=== PATIENT | male | born 1950 | race Caucasian/White ===

== ENCOUNTER 2018-07-12 03:19 | Inpatient (IN) | payer OTHER, BC ==
[2018-07-12] VITALS (107 sets, daily range): BP systolic 81–146; BP diastolic 32–71
[~2018-07-12] VITALS: Ht 193 cm; Wt 135.6 kg
--- NOTE | ~2018-07-12 | HC ---
[facility] [place] [address] CONSULTATION Name: LIZZIE COVINGTON Eric Room #: [facility] IN M.R.#: [id number] Admission: 07/12/18 ������������������ Attend Phys: Eduard Swenson MD Discharge: ������������������ Date of : 50 Report #: [id number] THIS REPORT FOR: //name// CC: SEAN PRESTON DATE OF SERVICE: 07/12/2018 REASON FOR CONSULTATION: Acute kidney injury and critical hyperkalemia. HISTORY OF PRESENT ILLNESS: This is a 68-year-old male who looks like he is here at [place] for the first time ever. He came in via ambulance as he was exceedingly weak, hypotensive, dyspneic. He has an extensive cardiac related history. He has had chronic atrial fibrillation and has been cared for at [facility]. On 07/10/2018, he went into [facility] and had ablation done for his persistent atrial fibrillation. He was in for basically 24 hours and was discharged home yesterday, which was 07/11/2018. The ablation required cannulation of the femoral vein bilaterally. He had a mild hematoma on the left. Otherwise, he states he felt okay upon discharge. Upon arriving home, he says he was very weak. He was dizzy so much that he could not get off the chair or couch. He had a small amount of water intake. He did not eat food. He did not take medications. His breathing continued to worsen overnight and this was a dramatic change, so he called 911 and came to the Emergency Room. Upon arrival in the Emergency Room here, he had a blood pressure of 72/30. He was bradycardic with a heart rate in the 50s, but on EKG it looks actually significantly slower than that, more in the 30 range. He was tachypneic with a respiratory rate of 29. He did have low-grade fever to 99.0. He originally was given 500 mL of IV fluids and he was given some dopamine. When his labs came back, he was noted to have a potassium level of 7.7. Other labs will be noted below. He was given on insulin, dextrose, albuterol per aerosol, sodium bicarbonate, all additionally given IV. Shortly after that his blood pressure started to improve. His QRS complex narrowed from a previously very wide complex. It was at that point that we were called in to see the patient. In talking to the patient, he states that he passed a very small amount of urine before leaving [facility], but that it was very small volume and the urine was very dark. He reports he had mild difficulty passing that urine. He thinks he voided twice after being home. He says he had basically no intake of food or fluids as noted above. He says the urine was still dark, but he was able to pass it. He denies any history of prostate trouble or difficulty passing urine. He remembers being told at [facility] that his kidneys "were not normal." He never recalls seeing a clipping marker previously. He does not recall what his baseline creatinine level is. There were some labs from 07/10/2018 prior to his [facility] [address] [place] [address] CONSULTATION Name: LIZZIE COVINGTON Room #: 241-P [facility] IN M.R.#: [id number] Admission: 07/12/18 ������������������ Attend Phys: Eduard Swenson MD Discharge: ������������������ Date of : 50 Report #: [id number] procedure, which showed a normal potassium level, but no creatinine level was done or at least no creatinine level was reported on the form we received on records transfer. He does not recall what the number has been. He also had a recent cardiac catheterization. He thinks it was maybe a month ago or slightly longer. He recalls no complications with that. There is no report of whether any contrast was used with the study 2 days ago. In addition, he chronically takes meloxicam 15 mg daily, but he thinks he has not taken it over the past couple of days. He is normally on an intermittent dose of furosemide and some daily spironolactone. I find no listing and he recalls no taking of either an KRISTEN inhibitor or an angiotensin receptor epifanio. No other nonsteroidal use that I can tell. PAST MEDICAL HISTORY: Chronic atrial fibrillation as noted above, prior cardioversions. He has been chronically on Eliquis. He had the ablation 2 days ago. 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 Other surgeries include a right foot surgery and bilateral total knee replacements. He has some hyperlipidemia and is on atorvastatin. He has a history of chronic asthma. He has some obesity. MEDICATIONS: As reported include amiodarone 200 mg b.i.d., Eliquis 5 mg b.i.d., furosemide, which on the [facility] note listed as taking 60 mg 3 days weekly as well as potassium 10 mEq b.i.d., spironolactone 25 mg daily, metoprolol 25 mg daily, diltiazem 120 mg daily, fish oil 1000 mg daily, trazodone 50 mg at bedtime, aspirin 81 mg daily, meloxicam 15 mg daily, atorvastatin 10 mg daily. ALLERGIES: No known medical allergies. FAMILY HISTORY: Both parents had heart disease. No known renal disease in the family. SOCIAL HISTORY: The patient is , lives in [place]. He is retired from the [employer] Service. He has had chronic tobacco use of 1 pack daily. REVIEW OF SYSTEMS: Although he is significantly edematous now, he states that he is not normally edematous. He is a bit unaware of when that started. Normally, no difficulty voiding urine, although he has had mild hesitancy with low urine output and dark urine as noted above. No flank pain. He has progressive dyspnea and was just taken off BiPAP long enough for me to ask a few questions. He has chronic dyspnea and some cough with his asthma. Unaware of fevers, chills or sweats. He was very dizzy upon arriving home yesterday as noted above. Denies nausea or vomiting, diarrhea. No abdominal pain. He says he felt exceedingly wiped out yesterday after getting home. PHYSICAL EXAMINATION: [facility] [address] [place] [address] CONSULTATION Name: LIZZIE COVINGTON Room #: 241-P [facility] IN [facility].#: [id number] Admission: 07/12/18 ������������������ Attend Phys: Eduard Swenson MD Discharge: ������������������ Date of : 50 Report #: [id number] GENERAL: Pale, acutely ill-appearing male. VITAL SIGNS: Blood pressure 104/32, heart rate 55, respiratory rate 24, oxygen saturation up to 98%. He had been on the BiPAP as noted above. Monitor now shows what either looks like a left bundle branch block or a junctional rhythm. There are no P waves noted. EKG actually looks like it might still be in atrial fib with a very slow ventricular response. QRS is significantly more narrow than it was on arrival. HEENT: Shows pupils are equal and reactive. Sclerae nonicteric. Oral mucosa is moist. NECK: Supple. There is no JVD. I hear no bruits. CHEST: Shows bilateral rales with faint wheezes bilaterally, poor excursion noted. HEART: Has an irregular bradycardia with grade 2 systolic murmur. ABDOMEN: Distended. Few bowel sounds are present. Abdomen is soft, nontender. I am unable to palpate any organomegaly or masses. I cannot palpate or percuss an enlarged urinary bladder. Right femoral cannulation site looks good. Left femoral site has ecchymosis. EXTREMITIES: Extremities are generally cool. He has no upper extremity edema. He has bilateral 3+ lower extremity edema, has 2+ pedal pulses. I see no evidence of blue toes. He does have a chronic deformity of his right ankle and foot. LABORATORY DATA: I reviewed his chest x-ray, which shows pulmonary edema, under aerated generally. EKG as noted above. LABORATORY DATA: Sodium 137, potassium 7.7, chloride 100, bicarbonate 16, BUN 48, creatinine 4.2, glucose 81. Troponin 7.53 on first check. White count 25.8, hemoglobin 10.9, hematocrit 35.8, platelets 186,000. Differential on the white count, 78 neutrophils, 7 bands, 5 lymphs, 10 monos. No urinalysis available. ASSESSMENT: 1. Critical hyperkalemia with EKG changes, very wide complex bradycardia. He was treated him about the time I got the call to the Emergency Room. We have not had a repeat potassium level, but I have ordered one now. His QRS is narrowed and his blood pressure came up, so I expect his potassium to be somewhat better. It was demonstrated to be normal on the labs 2 days ago at [facility]. Obviously, he has been on a combination of medications including spironolactone, potassium, and meloxicam. In addition, he was in [facility] and had the ablation done for his atrial fibrillation. It sounds like yesterday he was very hypotensive, all of which would be contributing. At this point, we will recheck his potassium. If it is coming down, we will continue to treat medically. If it is more of a problem, we will do emergent hemodialysis. 2. Acute kidney injury with creatinine level up to 4.2. Unfortunately, we do [facility] [address] [place] [address] CONSULTATION Name: LIZZIE COVINGTON Eric Room #: 241-P [facility] IN Jaz.#: [id number] Admission: 07/12/18 ������������������ Attend Phys: Eduard Swenson MD Discharge: ������������������ Date of : 50 Report #: [id number] not have a baseline and the patient is unaware of what his baseline is. He has been very oliguric at home by self description. We did scan his bladder and he had about 200 mL in his bladder now; that is after receiving 80 of Lasix IV. With his pulmonary edema, we will retreat with additional IV Lasix and with his blood pressure now better, hopefully we will get some effective diuresis. We will get a renal ultrasound for completeness. We will check fractional excretion of sodium. Some of this could certainly be prerenal azotemia with his hypotension. He certainly could have developed some acute tubular necrosis. He had a recent heart catheterization, but I do not see evidence of blue toes. He has no eosinophilia to suggest cholesterol embolization to his kidneys. There is no mention in the [facility]'s records of whether he received any contrast with his ablation. 3. Hypotension and cardiogenic shock, improved once his potassium was treated and his QRS narrowed. 4. Pulmonary edema. We will give him some IV Lasix and try to diurese. If that does not work, we will need to do dialysis to also get some volume off. 5. Acute elevation of troponin 2 days post-ablation for atrial fib. He had a recent cardiac catheterization with noncritical coronary artery disease. No intervention was done at that time. He has not had prior documented coronary artery disease. 6. History of ascending aortic dissection with aortic root replacement and aortic valve replacement. 7. Chronic anticoagulation. 8. Leukocytosis. He had very low-grade fever, but he has not had additional chills. No other symptoms to suggest that he is septic. We will draw baseline cultures. 9. Chronic atrial fibrillation as noted above. 10. Lower extremity edema, which is a new development for him. 11. Asthma by history. 12. Obesity. PLAN: 1. Stat repeat of his BMP. 2. Treat potassium according to new results. 3. Consideration of dialysis if either his potassium does not come down or he has continuing problems with pulmonary edema and we cannot get him diuresed. 4. High dose IV Lasix. 5. Continue to monitor bladder to make sure that he is emptying adequately. 6. Check urinalysis as well as fractional excretion of sodium. 7. Renal ultrasound. 8. Surveillance blood cultures with his leukocytosis. 9. Cardiology will certainly need to be involved in his care with his elevated [address] [address] CONSULTATION Name: LIZZIE COVINGTON Room #: 241-P ADM IN M.R.#: [id number] Admission: 07/12/18 ������������������ Attend Phys: Eduard Swenson MD Discharge: ������������������ Date of : 50 Report #: [id number] troponin. 10. Very close ICU monitoring. ��������������������������������������������� ���������������������������������������� By: ��������������������������������������������� [id number] Jarvis Huang MD /nt
[~2018-07-12 03:19] MED LIST: ALDACTONE25 MG PO; ALDACTONE50 MG PO; AMLODIPINE BESY10 MG PO; ASPIR 8181 MG PO; CARDIZEM CD120 MG PO; ELIQUIS5 MG PO; FISH OIL 1,001000 M2 PO; FOLIC ACID 1 MG1 MG PO; KLOR-CON 1010 MEQ PO; LASIX 40 MG TAB40 M2 PO; LIPITOR20 MG PO; METHOTREXATE 22.5 MG PO; MOBIC15 MG PO; PACERONE 200 M200 M1 PO; PACERONE200 MG PO; TOPROL XL25 MG PO; TRAZODONE HCL50 MG PO
[2018-07-12 03:45] LABS: HEMATOCRIT 35.8 % (42.0-52.0); HEMOGLOBIN 10.9 gm/dL (14.0-18.0); MCH 29.4 pg (26.0-34.0); MCHC 30.4 g/dL (28.0-37.0); MCV 96.5 fL (80.0-100.0); PLATELET COUNT 186 thou/uL (150-400); RBC 3.71 mil/uL (4.50-6.00); RDW 17.8 % (10.5-14.5); WBC 25.8 thou/uL (4.0-11.0)
[2018-07-12 03:52] LABS: CALCIUM 8.8 mg/dL (8.5-10.1); CREATININE 4.2 mg/dL (0.7-1.3)
[2018-07-12] MEDS ORDERED: CENTRUM SILVER1 EAC2 PO (03:54)
[2018-07-12 03:55] LABS: POTASSIUM 7.7 mmol/L (3.5-5.1); TROPONIN-I 7.53 ng/mL (<0.06)
[2018-07-12 04:28] LABS: ABSOLUTE NEUTROPHILS 21.9 thou/uL (1.4-8.2)
[2018-07-12 04:29] LABS: ANISOCYTOSIS 1+; LARGE PLATELETS FEW; PLATELET ESTIMATE NORMAL; POLYCHROMASIA 2+
[2018-07-12 05:56] LABS: CALCIUM 9.5 mg/dL (8.5-10.1); CREATININE 4.1 mg/dL (0.7-1.3)
--- NOTE | 2018-07-12 06:00 | NUR ---
Pt arrived ICU via cart,accompanied with ER staff to room 241. AAOx4, denies of any CP or chest discomfort. Mildly SOA, O2 sat 92% on 6 liters of oxygen. He is currently on dopamine gtt due to hypotension and bradycardic . 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 Hx obtained, Assessment completes. Care plans are initiated, continue working toward goals.
[2018-07-12 06:02] LABS: POTASSIUM 6.6 mmol/L (3.5-5.1)
[2018-07-12 08:30] LABS: BE(vivo) -10.1 mmol/L (-2 to +3); HCO3 15.6 mmol/L (22.0-26.0); PCO2 33.9 mmHg (35.0-45.0); PO2 74.7 mmHg (80.0-100.0); sO2 93.5 % (92.0-98.0)
[2018-07-12 08:31] LABS: pH 7.282 (7.360-7.450)
[2018-07-12 09:00] LABS: URINE BILIRUBIN NEGATIVE (Negative); URINE BLOOD 3+ (Negative); URINE CLARITY CLOUDY; URINE COLOR YELLOW; URINE GLUCOSE-RANDOM* NEGATIVE (Negative); URINE KETONES NEGATIVE (Negative); URINE LEUKOCYTES TRACE (Negative); URINE NITRITE NEGATIVE (Negative); URINE PROTEIN (DIPSTICK) 2+ (Negative); URINE SPECIFIC GRAVITY 1.025 (1.005-1.035)
[2018-07-12 09:10] LABS: AMORPHOUS URATES Many /LPF (None Seen); SQUAMOUS 0-3 Few /LPF (0-3); URINE RBC >20 Many /HPF (0-2)
[2018-07-12 09:11] LABS: HYALINE CASTS 0-3 Few /LPF (None Seen); URINE WBC 6-15 Few /HPF (0-5); YEAST Present (None Seen)
[2018-07-12 09:14] LABS: URINE CREATININE-RANDOM* 56.3 mg/dL
[2018-07-12 09:41] LABS: ALBUMIN 3.4 g/dL (3.4-5.0); CALCIUM 9.3 mg/dL (8.5-10.1); CREATININE 4.1 mg/dL (0.7-1.3); DIRECT BILIRUBIN 1.8 mg/dL (<0.1-0.3); MAGNESIUM 1.9 mg/dL (1.8-2.4); TOTAL PROTEIN 6.5 g/dL (6.4-8.2)
[2018-07-12 09:43] LABS: POTASSIUM 6.4 mmol/L (3.5-5.1)
[2018-07-12 09:44] LABS: TROPONIN-I 6.56 ng/mL (<0.06)
--- NOTE | 2018-07-12 09:51 | EKG ---
[address] [place] [address] ELECTROCARDIOGRAM REPORT Name: LIZZIE COVINGTON Room #: 241-P ADM IN M.R.#: [id number] ������������������ Admission: 07/12/18 ������������������ Attend Phys: Eduard Swensno MD Discharge: ������������������ Date of : 50 Report #: [id number] ����������������������������������������������������������������� [id number] THIS REPORT FOR: //name// [facility] ED Test Date: 2018-07-12 Test Time: 03:25:12 Pat Name: LIZZIE COVINGTON Department: Room: 241 Gender: M Director Broadcast: JANELLE : 1950 Requested By: Marlo Woody Order Number: [id number] MD: Sebastián More Measurements Intervals [place] Rate: 56 P: VT: QRS: -52 QRSD: 236 T: 85 QT: 617 QTc: 596 Interpretive Statements Atrial fibrillation Left bundle branch block No previous ECG available for comparison Electronically Signed On 07-12-2018 9:50:50 CDT by Sebastián More [email or web address] ��������������������������������������������� <ELECTRONICALLY SIGNED> ���������������������������������������� By: Sebastián More MD, [facility] ��������������������������������������������� 07/12/18 0950 0325 0325 Sebastián More MD, FACC /EPI
--- NOTE | 2018-07-12 10:10 | NUR ---
vascular access team consulted for central line. DR ULRICH CANCELLED ORDER AND SPOKE WITH IR TO PLACE DIALYSIS CATH WITH PIGTAIL FOR IV ACCESS.
--- NOTE | 2018-07-12 10:34 | 2DMMODE ---
[facility] [employer] [place] [address] 2 D/M-MODE ECHOCARDIOGRAM Name: COVINGTONLIZZIE Eric Room #: 241-P [facility] IN ..#: [id number] ������������� Admission: 07/12/18 ������������� Attend Phys: Eduard Swenson MD Discharge: ��� ������������� ��� Date of : 50 Date of Service: 07/12/18 1034 �� Report #: [id number] �������� ��������������������������������������������[id number] THIS REPORT FOR: //name// APPROVED REPORT Study performed: 07/12/2018 09:03:48 EXAM: Comprehensive 2D, Doppler, and color-flow Echocardiogram Patient Location: ICU Room #: 241 Status: routine BSA: 2.61 HR: 80 bpm BP: 104/32 mmHg Rhythm: NSR Other Information Study Quality: Adequate Indications Hypotension CAD Hypertension/HDD s/p ablation 07/10-, Hx Ao dissection with stent, SOA Echo Enhancing Agent Indication: Endocardial border delineation Agent(s) / Amount(s) Used: Optison 3 cc 2D Dimensions RVDd: 47.05 mm IVSd: 16.47 (7-11mm) LVOT Diam: 23.76 (18-24mm) LVDd: 67.90 mm PWd: 15.02 (7-11mm) LVDs: 55.02 (25-40mm) Aortic Root: 26.38 mm Volumes Left Atrial Volume (Systole) Single Plane 4CH: 224.54 mL Single Plane 2CH: 121.85 mL LA ESV Index: 65.00 mL/m2 Aortic Valve AoV Peak Eric.: 1.71 m/s [facility] [address] [place] [address] 2 D/M-MODE ECHOCARDIOGRAM Name: LIZZIE COVINGTON Room #: 241-P [facility] IN ..#: [id number] ������������� Admission: 07/12/18 ������������� Attend Phys: Eduard Swenson MD Discharge: ��� ������������� ��� Date of : 50 Date of Service: 07/12/18 1034 �� Report #: [id number] �������� ��������������������������������������������[id number] AO Peak Gr.: 11.70 mmHg LVOT Max P.46 mmHg LVOT Max V: 1.06 m/s ANGEL Vmax: 2.74 cm2 AI Vmax: 4.83 m/s AI [place]: 3.89 m/s2 AI PHT: 360.32 ms Mitral Valve E/A Ratio: 2.7 MV Decel. Time: 133.88 ms MV E Max Eric.: 1.60 m/s MV A Erci.: 0.59 m/s MV PHT: 38.83 ms IVRT: 31.14 ms Pulmonary Valve PV Peak Eric.: 1.14 m/s PV Peak Gr.: 5.23 mmHg Tricuspid Valve TR Peak Eric.: 3.53 m/s TR Peak Gr.: 49.96 mmHg Left Ventricle Left ventricle is moderately dilated. Moderate concentric left ventricular hypertrophy. Left ventricular systolic function is moderately decreased. LVEF is 35%. Right Ventricle Right ventricle is moderately dilated. Right ventricle is mildly hypokinetic. Atria Left atrium is severely dilated. Right atrium is severely dilated. Aortic Valve Aortic valve is mildly calcified. Moderate to severe aortic regurgitation There is no aortic valvular stenosis. Mitral Valve Mild mitral annular calcification. Severe mitral regurgitation. No evidence of mitral valve stenosis. Tricuspid Valve The tricuspid valve is normal in structure. Moderate tricuspid regurgitation. PAP is estimated at 50 mmHg + estimated RA [facility] [address] [place] [address] 2 D/M-MODE ECHOCARDIOGRAM Name: LIZZIE COVINGTON Eric Room #: 241-P ADM IN M.R.#: [id number] ������������� Admission: 07/12/18 ������������� Attend Phys: Eduard Swenson MD Discharge: ��� ������������� ��� Date of : 50 Date of Service: 07/12/18 1034 �� Report #: [id number] �������� ��������������������������������������������[id number] pressure. Pulmonic Valve The pulmonary valve is normal in structure. Trace pulmonic regurgitation. Great Vessels The aortic root is normal in size. Ascending aorta is not well visualized. IVC is not visualized. Pericardium There is no pericardial effusion. <Conclusion> Left ventricle is moderately dilated. LVEF is 35%. Right ventricle is moderately dilated. Right ventricle is mildly hypokinetic. Left atrium is severely dilated. Right atrium is severely dilated. Aortic valve is mildly calcified. Moderate to severe aortic regurgitation Mild mitral annular calcification. Severe mitral regurgitation. The tricuspid valve is normal in structure. Moderate tricuspid regurgitation. PAP is estimated at 50 mmHg + estimated RA pressure. The pulmonary valve is normal in structure. Trace pulmonic regurgitation. There is no pericardial effusion. ��������������������������������������������� <ELECTRONICALLY SIGNED> ���������������������������������������� By: Theron Whiteside MD ��������������������������������������������� 07/12/18 1034 1034 1034 Theron Whiteside MD /INF
--- NOTE | 2018-07-12 10:55 | NUR ---
PATIENT SIGNED CONSENTS AFTER PHYSICIAN DISCUSSED PLACEMENT OF TEMPORARY DIALYSIS ACCESS AND NURSE EXPLAINED CENTRAL LINE PLACEMENT. IR CAME TO TRANSPORT PATIENT FOR PROCEEDURES. CRITICAL LABS CALLED TO APPROPRIATE PHYSICIANS. CONSULTS CALLED.
[2018-07-12 18:48] LABS: ALBUMIN 3.1 g/dL (3.4-5.0); CALCIUM 8.1 mg/dL (8.5-10.1); PHOSPHORUS 5.5 mg/dL (2.5-4.9)
--- NOTE | 2018-07-12 18:48 | NUR ---
PATIENT ASSESSMENTS AND VITAL SIGNS DOCUMENTED. PATIENT HAD TEMPORARY DIALYSIS ACCESS PLACED IN RIGHT JUGULAR. HE HAD DIALYSIS TODAY, SEE FLOW CHART. HE TOLERATED WELL, FAMILY WAS IN THE ROOM. HE ALSO HAD A CENTRAL LINE PLACED IN HIS RIGHT JUGULAR. IT IS OK TO USE AND IT IS BEING UTILIZED FOR THE DOPAMINE GTT AND ZOSYN. HE IS VERY PLEASANT AND COOPERATIVE. HE EXPRESSED SOME EPIGASTRIC DISCOMFORT AT A 1/10, EXPRESSED IT MIGHT BE INDIGESTION. NURSE NOTIFIED CARDIOLOGY AND PRIMARY TO ASSESS FOR POSSIBLE INTERVENTIONS. ORAL INDIGESTION MEDICATIONS PROVIDED TONIGHT, WILL WAIT TO SEE IF IT HELPED. DOPAMINE IS BEING TITRATED TO KEEP HEART RATE >60BPM. SEE TITRATION DOCUMENTATION. REPORT WILL BE GIVEN TO SILVERWARE ETCHER RN FOR CONTINUATION OF CARE.
[2018-07-12 18:49] LABS: CREATININE 3.1 mg/dL (0.7-1.3); POTASSIUM 4.9 mmol/L (3.5-5.1)
--- NOTE | 2018-07-12 19:30 | NUR ---
I have reviewed the documentation by Jarvis Lanier from 07/12/18 07 to 07/12/18 193 and I concur with it.
[2018-07-13] VITALS (88 sets, daily range): BP systolic 87–157; BP diastolic 36–135
--- NOTE | 2018-07-13 05:08 | NUR ---
ASSUMED CARE OF PT. AT 1900. PT. IS PLEASANT AND COOPERATIVE. A&O X4. ASSESSMENTS AND VITAL SIGNS CHARTED. MEDICATION TOTRATION CHARTED. PT. DID NOT USE BIPAP OVERNIGHT, STAYED ON NC AT 4L, WELL TOLERATED. PT. REMAINEED HEMODYNAMICALLY STABLE WITH DOPAMINE GTT. NO COMPLAINTS OF CHEST PAIN THROUGHOUT SHIFT. PLAN OF CARE IS TO CONTINUE TO MONITOR LABS AND GIVE DIALYSIS FURING AM SHIFT. WILL CONTINUE TO MONITOR.
[2018-07-13 05:09] LABS: HEMATOCRIT 28.7 % (42.0-52.0); HEMOGLOBIN 9.6 gm/dL (14.0-18.0); MCH 30.3 pg (26.0-34.0); MCHC 33.2 g/dL (28.0-37.0); PLATELET COUNT 142 thou/uL (150-400); RBC 3.16 mil/uL (4.50-6.00); RDW 16.7 % (10.5-14.5); WBC 15.5 thou/uL (4.0-11.0)
[2018-07-13 05:34] LABS: ALBUMIN 3.1 g/dL (3.4-5.0); CREATININE 3.6 mg/dL (0.7-1.3); MAGNESIUM 1.9 mg/dL (1.8-2.4); PHOSPHORUS 5.5 mg/dL (2.5-4.9); POTASSIUM 4.8 mmol/L (3.5-5.1); TOTAL BILIRUBIN 2.7 mg/dL (<0.1-1.0); TOTAL PROTEIN 5.7 g/dL (6.4-8.2)
[2018-07-13 05:51] LABS: TROPONIN-I 2.34 ng/mL (<0.06)
[2018-07-13 07:01] LABS: ABSOLUTE NEUTROPHILS 14.3 thou/uL (1.4-8.2); ANISOCYTOSIS 1+; LARGE PLATELETS OCCASIONAL; METAMYELOCYTES 1 %
--- NOTE | 2018-07-13 08:22 | EKG ---
[address] [address] ELECTROCARDIOGRAM REPORT Name: LIZZIE COVINGTON Room #: 241-P ADM IN M.R.#: [id number] ������������������ Admission: 07/12/18 ������������������ Attend Phys: Eduard Swenson MD Discharge: ������������������ Date of : 50 Report #: [id number] ����������������������������������������������������������������� [id number] THIS REPORT FOR: //name// [facility] Test Date: 2018-07-13 Test Time: 07:46:36 Pat Name: LIZZIE COVINGTON Department: Room: 241 P Gender: M Magnetic Observer: GR : 1950 Requested By: Eduard Swenson Order Number: [id number] MD: Pedro Luis Metcalf Measurements Intervals [place] Rate: 60 P: -33 WV: 269 QRS: -43 QRSD: 145 T: 115 QT: 449 QTc: 449 Interpretive Statements Sinus rhythm Ventricular premature complex Prolonged [place] interval Compared to ECG 07/12/2018 03:25:12 Electronically Signed On 07-13-2018 8:22:27 CDT by Pedro Luis Metcalf [email or web address] ��������������������������������������������� <ELECTRONICALLY SIGNED> ���������������������������������������� By: Pedro Luis Metcalf MD ��������������������������������������������� 07/13/18 0822 D: 04/745 5 Pedro Luis Metcalf MD /ZHENG
--- NOTE | 2018-07-13 12:17 | 2DMMODE ---
[facility] [place] [address] 2 D/M-MODE ECHOCARDIOGRAM Name: ADRIALIZZIE Eric Room #: 238-P ADM IN ..#: [id number] ������������� Admission: 07/12/18 ������������� Attend Phys: Eduard Swenson MD Discharge: ��� ������������� ��� Date of : 50 Date of Service: 07/13/18 1217 �� Report #: [id number] �������� ��������������������������������������������[id number] THIS REPORT FOR: //name// APPROVED REPORT Study performed: 07/13/2018 11:26:42 EXAM: Limited 2D, Doppler, and color-flow Echocardiogram Patient Location: ICU Room #: [facility] Status: ESTRELLITA BSA: 2.63 HR: 57 bpm BP: 112/46 mmHg Rhythm: REGULAR Other Information Study Quality: GoodAdequate Indications Follow up echo for LV function. (Complete echo done yesterday, EF-35%) 2D Dimensions IVSd: 15.88 (7-11mm) LVDd: 72.09 mm PWd: 15.33 (7-11mm) Ascending Ao: 42.38 (22-36mm) LVDs: 51.30 (25-40mm) Aortic Root: 45.22 mm Aortic Valve AI Vmax: 4.97 m/s AI Corson: 3.26 m/s2 AI PHT: 441.46 ms Tricuspid Valve TR Peak Eric.: 3.23 m/s TR Peak Gr.: 41.85 mmHg Left Ventricle Left ventricle is dilated. Moderate concentric left ventricular hypertrophy. Left ventricular systolic function is mild to moderately decreased. LVEF is 40-45%. Right Ventricle Right ventricle is dilated. [facility] [address] [place] [address] 2 D/M-MODE ECHOCARDIOGRAM Name: LIZZIE COVINGTON Room #: 238-P [facility] IN .[place].#: [id number] ������������� Admission: 07/12/18 ������������� Attend Phys: Eduard Swenson MD Discharge: ��� ������������� ��� Date of : 50 Date of Service: 07/13/18 1217 �� Report #: [id number] �������� ��������������������������������������������[id number] Atria Left atrium is dilated. Right atrium is dilated. Aortic Valve Aortic valve is calcified. Severe aortic regurgitation. Mitral Valve The mitral valve is normal in structure. Mild mitral annular calcification. Severe mitral regurgitation. Tricuspid Valve The tricuspid valve is normal in structure. Moderate tricuspid regurgitation. Estimated PAP is 42mmHg plus the right atrial pressure. Pulmonic Valve The pulmonary valve is normal in structure. Moderate pulmonic regurgitation. Great Vessels Aortic root is dilated at 4.5cm. Ascending aorta is dilated at 4.2cm. IVC is not well visualized. Pericardium There is no pericardial effusion. <Conclusion> Left ventricle is dilated. LVEF is 40-45%. Right ventricle is dilated. Left atrium is dilated. Right atrium is dilated. Aortic valve is calcified. Severe aortic regurgitation. The mitral valve is normal in structure. Mild mitral annular calcification. Severe mitral regurgitation. The tricuspid valve is normal in structure. Moderate tricuspid regurgitation. Estimated PAP is 42mmHg plus the right atrial pressure. The pulmonary valve is normal in structure. Moderate pulmonic regurgitation. Aortic root is dilated at 4.5cm. [facility] [address] [place] [address] 2 D/M-MODE ECHOCARDIOGRAM Name: ADRIALIZZIE Eric Room #: 238-P [facility] IN [facility].#: [id number] ������������� Admission: 07/12/18 ������������� Attend Phys: Eduard Swenson MD Discharge: ��� ������������� ��� Date of : 50 Date of Service: 07/13/181216 �� Report #: [id number] �������� ��������������������������������������������[id number] Ascending aorta is dilated at 4.2cm. There is no pericardial effusion. ��������������������������������������������� <ELECTRONICALLY SIGNED> ���������������������������������������� By: Theron Whiteside MD ��������������������������������������������� 07/13/187 16 16 Theron Whiteside MD /INF
[2018-07-13 14:09] LABS: HEPATITIS B SURFACE AG Negative (Negative)
--- NOTE | 2018-07-13 15:43 | NUR ---
PT ADMITTED RELATED TO ARF DUE TO PULMONARY EDEMA. CM REVIEWED CHART AND SPOKE WITH CARE TEAM. CM MET WITH PT AT BEDSIDE THIS DAY. PT IS A&O X4. CM ROLE INTRODUCED. PT INDICATED HE LIVES ALONE IN A HOUSE WITH 2 STEPS TO ENTER AND NO STEPS INSIDE. 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 PT INDICATED NO DME FOR USE AT HOME. PT INDICATED HE HAD HOME HEALTH WHEN HE HAD HIS KNEES REPLACED BUT COULDN'T RECALL PROVIDER. CM PROVIDED LIST OF HH'S FOR HIM TO REVIEW SHOULD IT BE RECOMMENDED UPON DC. PT INDICATED HE PLANS TO RETURN HOME ONCE MEDICALLY STABLE. CM TO FOLLOW INDICATED WITH DC PLANNING.
--- NOTE | 2018-07-13 18:37 | NUR ---
PATIENT ASSESSMENTS AND VITAL SIGNS DOCUMENTED. HE WORKED WITH PHYSICAL THERAPY TODAY. HE GOT UP INTO THE CHAIR, THEN BACK TO BED FOR HIS ECHOCARDIOGRAM. THEN PHYSICAL THERAPY CAME BACK AND GOT HIM UP TO CHAIR AGAIN. HE HAS A MARINAL, MINIMAL APPETITE. VIGIL CATHETER INTACT WITH OUTPUT DOCUMENTED. PLAN OF CARE IS TO CONTINUE TO MONITOR PATIENT ASSESSMENTS, VITAL SIGNS, INCREASE ACTIVITY, AND TITRATE DOPAMINE. PATIENT PROGRESSING TOWARDS PLAN OF CARE GOALS.
--- NOTE | 2018-07-13 23:58 | NUR ---
REPORT GIVEN TO IRA RN AT 7260
[2018-07-14] VITALS (53 sets, daily range): BP systolic 93–116; BP diastolic 38–72
--- NOTE | 2018-07-14 05:00 | NUR ---
Pt with second episode of non sustain Junctional tachycardia this am. Denies of any symptoms. Stop dopamine gtt for now. Will watch for his HR /cardiac rhythms and BP closely.
[2018-07-14 05:02] LABS: HEMATOCRIT 26.9 % (42.0-52.0); HEMOGLOBIN 9.1 gm/dL (14.0-18.0); MCH 30.8 pg (26.0-34.0); MCHC 33.9 g/dL (28.0-37.0); RBC 2.95 mil/uL (4.50-6.00); RDW 17.2 % (10.5-14.5); WBC 10.4 thou/uL (4.0-11.0)
[2018-07-14 05:15] LABS: ALBUMIN 2.7 g/dL (3.4-5.0); CALCIUM 7.9 mg/dL (8.5-10.1); CREATININE 3.6 mg/dL (0.7-1.3); PHOSPHORUS 4.1 mg/dL (2.5-4.9); POTASSIUM 4.1 mmol/L (3.5-5.1)
--- NOTE | 2018-07-14 07:00 | NUR ---
Pt remains stable in this am. Dopamine gtt remains off. HR in 50's and SBP > 90 mmHg. Report is hand off to am shift RN.
--- NOTE | 2018-07-14 12:27 | NUR ---
ASSUMED CARE OF PT AT 0700 THIS SHIFT. PT HAS BEEN COOPERATIVE, HAS DENIED ANY PAIN THIS SHIFT. PT HAS BEEN OFF DOPAMINE ALL SHIFT, HR REMAINED 50s-60s, NEW EKG THIS MORNING SHOWED PT HAS LEFT BBB. PT WAS SEEN BY ALL PHYSICIANS, CARDIOLOGY IS OK WITH PT TRANSFERRING TO CCU LATER IN THE DAY. ASSESSMENTS ARE DOCUMENTED, PT IS CURRENTLY RESTING COMFORTABLY IN THE ROOM. PT HAS HAD VISITORS THIS SHIFT, EDUCATION WAS PROVIDED. PLAN OF CARE IS TO CONTINUE TO MONITOR PT CLOSELY AT THIS TIME AND TRANSFER PT OUT OF ICU AT END OF SHIFT.
--- NOTE | 2018-07-14 14:14 | HC ---
[facility] [place] [address] CONSULTATION Name: LIZZIE COVINGTON Eric Room #: 238-P [facility] IN M.R.#: [id number] Admission: 07/12/18 ������������������ Attend Phys: Eduard Swenson MD Discharge: ������������������ Date of : 50 Report #: [id number] THIS REPORT FOR: //name// CC: SEAN PRESTON DATE OF SERVICE: 07/12/2018 PULMONARY CONSULTATION REFERRING PHYSICIAN: Dr. Lee. REASON FOR REFERRAL: Hypoxia. HISTORY OF PRESENT ILLNESS: The patient is a 68-year-old white male who was brought to the Emergency Room with progressive dyspnea and chest tightness. A pulmonary consultation was requested. The patient underwent an ablation procedure at [facility] couple days ago. He was in the hospital overnight. When he returned, he did not feel well. He felt lightheaded, dizzy. He also noted increasing dyspnea. With worsening dyspnea, he presented to the Emergency Room. In the ER, the patient was found to be hypoxic. He was hypoxic, hyperkalemic, Electrolytes showed an elevated creatinine. In the ER, the patient was also found to be hypotensive with a systolic blood pressure around 70 mmHg. He was also bradycardic. He was given atropine with good response. Since admission, the patient is now scheduled to undergo hemodialysis. The patient is now getting ready to go to hemodialysis. Otherwise, the patient denies any chronic lung disease. Denies any tobacco use. No recent hemoptysis. PAST MEDICAL HISTORY: Notable for chronic atrial fibrillation as mentioned above, undergoing ablation surgery, on chronic anticoagulation, abdominal aortic aneurysm, undergoing surgical repair along with hyperlipidemia. PAST SURGICAL HISTORY: As mentioned above. ALLERGIES: None to medications. [facility] [address] [place] [address] CONSULTATION Name: LIZZIE COVINGTON Room #: 238-P [facility] IN M.R.#: [id number] Admission: 07/12/18 ������������������ Attend Phys: Eduard Swenson MD Discharge: ������������������ Date of : 50 Report #: [id number] HOME MEDICATIONS: Reviewed. This includes amiodarone, Eliquis, Lasix, potassium supplements, spironolactone, metoprolol, diltiazem, trazodone, aspirin, meloxicam, atorvastatin. FAMILY HISTORY: Notable for coronary artery disease in the parents. SOCIAL HISTORY: The patient is . He has children who live in town. He has worked for the [employer]. He is currently retired. The patient denies any history of tobacco use to this physician, though medical record suggests that he has smoked cigarettes in the past. REVIEW OF SYSTEMS: As mentioned above, otherwise 10-point system reviewed and negative. PHYSICAL EXAMINATION: GENERAL: He is awake, alert, appears moderately dyspneic. VITAL SIGNS: Temperature is 97 degrees Fahrenheit, pulse is 60, respiratory rate is 20, blood pressure 110/50 mmHg, saturation 99%. HEENT: Normocephalic, atraumatic. NECK: Supple, without lymphadenopathy or thyromegaly. CHEST: Breath sounds are fair. Few scattered crackles in the bases. No wheezes. CARDIOVASCULAR: Irregular, no obvious murmurs or gallop. Pulses are 2+/4+ bilaterally. ABDOMEN: Soft, nontender. No organomegaly or masses felt. GENITOURINARY: Deferred. RECTAL: Deferred. EXTREMITIES: 2+ edema bilaterally. NEUROLOGIC: Grossly intact. LABORATORY DATA: Portable chest x-ray shows small lung volumes, increased pulmonary vascular markings. Leg Doppler ultrasound showed no evidence of DVT. Procalcitonin level is 0.5. Lactic acid 7.1. Sodium 137, potassium 7.7, chloride 100, CO2 of 16, BUN is 48, creatinine is 4.2. WBC 25,800, hemoglobin 10.9, platelets are normal. Arterial blood gas revealed pH 7.28, pCO2 of 33, pO2 of 74 on 5 liters of O2. IMPRESSION: 1. Acute hypoxic respiratory failure due to pulmonary edema. 2. Pulmonary edema due to acute renal failure. 3. Profound hyperkalemia, acute kidney injury on chronic kidney disease. 4. Hypotension, leukocytosis, possible sepsis, possible cardiogenic. 5. Chronic atrial fibrillation, status post ablation, on chronic anticoagulation. 6. Elevated troponin, history of coronary artery disease. [address] [address] CONSULTATION Name: LIZZIE COVINGTON Room #: 238-P ADM IN M.R.#: [id number] Admission: 07/12/18 ������������������ Attend Phys: Eduard Swenson MD Discharge: ������������������ Date of : 50 Report #: [id number] 7. History of ascending aortic aneurysm repair with aortic valve replacement. RECOMMENDATION: Agree with current management, diuresis, plan for hemodialysis, wean O2 for saturation 90%. DVT and GI prophylaxis recommended. Thank you for this consultation. ��������������������������������������������� <ELECTRONICALLY SIGNED> ���������������������������������������� By: Jah Ruelas MD ��������������������������������������������� 07/14/18 1414 1432 0740 Jah Ruelas MD /nt
[2018-07-15] VITALS (11 sets, daily range): BP systolic 105–128; BP diastolic 43–62
[2018-07-15 05:04] LABS: HEMATOCRIT 27.9 % (42.0-52.0); HEMOGLOBIN 9.2 gm/dL (14.0-18.0); MCH 30.2 pg (26.0-34.0); MCV 91.5 fL (80.0-100.0); RBC 3.05 mil/uL (4.50-6.00); RDW 16.8 % (10.5-14.5); WBC 9.1 thou/uL (4.0-11.0)
--- NOTE | 2018-07-15 05:13 | NUR ---
No event tonight. Pt remains stable. Resting well post received bath and Trazadone. He is continue to be off dopamine gtt. HR as low as 55 bpm tonight when he is sleeping, otherwise his HR were in 60's when he awakes. No junctional tach indicates in this shift. Swelling in LE seems to be slightly improved. He lost 1.3 lbs within 24 hrs. Made over 1500 cc of urine within 12 hrs. Slowly progressing toward goals.
[2018-07-15 05:20] LABS: ALBUMIN 2.8 g/dL (3.4-5.0); CALCIUM 8.7 mg/dL (8.5-10.1); CREATININE 3.1 mg/dL (0.7-1.3); PHOSPHORUS 3.5 mg/dL (2.5-4.9); POTASSIUM 4.1 mmol/L (3.5-5.1)
[2018-07-15 07:05] LABS: ALBUMIN 2.8 g/dL (3.4-5.0); DIRECT BILIRUBIN 1.3 mg/dL (<0.1-0.3); TOTAL BILIRUBIN 2.7 mg/dL (<0.1-1.0); TOTAL PROTEIN 5.6 g/dL (6.4-8.2)
--- NOTE | 2018-07-15 13:31 | EKG ---
[address] [place] [address] ELECTROCARDIOGRAM REPORT Name: LIZZIE COVINGTON Room #: 238-P ADM IN M.R.#: [id number] ������������������ Admission: 07/12/18 ������������������ Attend Phys: Eduard Swenson MD Discharge: ������������������ Date of : 50 Report #: [id number] ����������������������������������������������������������������� [id number] THIS REPORT FOR: //name// [facility] Test Date: 2018-07-14 Test Time: 09:43:15 Pat Name: LIZZIE COVINGTON Department: Room: 238 P Gender: M Fraud Examiner: JOCY : 1950 Requested By: Harman Smith Order Number: [id number] MD: Sebastián More Measurements Intervals [place] Rate: 60 P: 33 AL: 255 QRS: -44 QRSD: 150 T: 119 QT: 473 QTc: 473 Interpretive Statements Sinus rhythm Prolonged AL interval Left bundle branch block Compared to ECG 07/13/2018 07:46:36 No significant change was found Electronically Signed On 07-15-2018 13:31:05 CDT by Sebastián More [email or web address] ��������������������������������������������� <ELECTRONICALLY SIGNED> ���������������������������������������� By: Sebastián More MD, [facility] ��������������������������������������������� 07/15/18 1331 2 2 Sebastián More MD, FAC /EPI
--- NOTE | 2018-07-15 13:45 | NUR ---
Patient assessments and vital signs as documented. He was transported to ccu via chair with all belongings, phone, tank washer, shoes, brace, clothes, bag, glasses. He got up with assistance x1 with a walker and gatebelt to the chair today. He expressed he wanted to wait until he ate lunch to brush his teeth. Patient progressing towards plan of care.
--- NOTE | 2018-07-15 13:49 | NUR ---
I have reviewed the documentation by Jarvis Lanier from 07/15/18 0700 to 07/15/18 5758 and I concur with it.
--- NOTE | 2018-07-15 14:45 | NUR ---
ICU TRANSFER RECIEVED. PATIENT ALERT AND ORIENTED X4, NO COMPLAINTS OF PAIN. SINUS RHYTHM ON SEMICONDUCTOR PACKAGES PLATEMAKER. ON 2L NASAL CANNULA VIGIL PATENT AND DRAINING. NO SIGNS OF ACUTE DISTRESS NOTED AT THIS TIME. WILL CONTINUE TO MONITOR.
--- NOTE | 2018-07-15 18:13 | NUR ---
PATIENT TRANSFERRED FROM ICU AT 1330. ALERT AND ORIENTED X4, NO COMPLAINTS OF PAIN. SINUS RHYTHM ON TIE FASTENER. ON 2L NASAL CANNULA, TOLERATING HEART HEALTHY DIET. VIGIL FOR URINARY RETENTION, DRAINING PATENT. RIGHT CENTRAL LINE AND TEMPORARY DIALYSIS CATHETER INTACT. UP WITH X1 ASSISTANCE. PATIENT AND FAMILY UPDATED ON THE PLAN OF CARE. NO SIGNS OF ACUTE DISTRESS NOTED AT THIS TIME. WILL CONTINUE TO MONITOR.
[2018-07-16 04:03] VITALS: BP 130/54
[2018-07-16 06:35] LABS: HEMATOCRIT 27.9 % (42.0-52.0); HEMOGLOBIN 9.2 gm/dL (14.0-18.0); MCHC 33.2 g/dL (28.0-37.0); MCV 90.5 fL (80.0-100.0); RBC 3.08 mil/uL (4.50-6.00); RDW 17.5 % (10.5-14.5); WBC 9.5 thou/uL (4.0-11.0)
[2018-07-16 06:48] LABS: ALBUMIN 2.9 g/dL (3.4-5.0); CALCIUM 9.1 mg/dL (8.5-10.1); CREATININE 2.7 mg/dL (0.7-1.3); PHOSPHORUS 3.6 mg/dL (2.5-4.9); POTASSIUM 3.7 mmol/L (3.5-5.1)
[2018-07-16 07:22] VITALS: BP 128/61
--- NOTE | 2018-07-16 07:40 | NUR ---
ASSUME CARE 1900. PT/VITALS STABLE. DENIES ANY PAIN. SR/1D/BBB ON MONITOR. UP WITH ASSISTANCE AND WALKER. LEFT GROIN SITE /SCROTUM BRUISED. VIGIL IN FOR RETENTION. PLAN IS TO CONTINUE DIURESING PT AND MONITOR HEART FUNCTION. WILL CONTINUE TO MONITRO AND FOLLOW WITH POC
--- NOTE | 2018-07-16 10:27 | NUR ---
ASSUMED CARE AT 0700, SHIFT ASSESSMENT DONE, MEDS GIVEN, VSS. DENIES ANY PAIN, NAUSEA, VOMITING. VIGIL WAS TAKEN OUT THIS AM AT 1020 PER ORDER. AWAITING FOR IV NURSE TO COME IN SO THAT TEMPORARY DIALYSIS CATHETER CAN BE PULLED OUT WELL. SCHEDULED TO WORK WITH PHYSICAL AND OCCUPATIONAL THERAPHY. ON 1L NC, SATURATION BETWEEN 97-99%. WILL CONTINUE TO ASSESS AND ASSIST WITH ADLs NEEDED.
[2018-07-16 11:43] VITALS: BP 97/47
[2018-07-16 16:12] VITALS: BP 113/58
[2018-07-16 16:51] VITALS: BP 128/55
--- NOTE | 2018-07-16 19:52 | NUR ---
CONVERTED TO AFIB THIS AFTERNOON, STARTED ON A AMIO DRIP. BOLUS GIVEN, ON CONTINUOUS DRIP NOW. VIGIL WAS TAKEN OUT PER ORDER, ABLE TO VOID PER URINAL. TEMPORARY DIALYSIS CATHETER WAS TAKEN OUT BY IV NURSE. TRIPLE LUMEN IJ STILL IN PLACE. REPORT GIVEN TO NIGHT NURSE.
[2018-07-16 19:56] VITALS: BP 107/59
[2018-07-17] VITALS (9 sets, daily range): BP systolic 118–133; BP diastolic 51–62
[2018-07-17 07:01] LABS: ALBUMIN 2.9 g/dL (3.4-5.0); CALCIUM 8.9 mg/dL (8.5-10.1); CREATININE 2.2 mg/dL (0.7-1.3); PHOSPHORUS 3.2 mg/dL (2.5-4.9); POTASSIUM 3.3 mmol/L (3.5-5.1)
--- NOTE | 2018-07-17 08:29 | NUR ---
ASSUME CASRE 1900. PT/VITALS STABLE. DENIES ANY PAIN AT THIS TIME. TOLERATES ACTIVITY WELL WITH ASSISTANCE. ASSESSMENT CHARTED. PROGRESSING WELL WITH POC. PLAN IS TO CONTINUE TO TREAT WITH ABX AND MONITOR PT'S RHYTHM. ON AMIO DRIP FOR AFIB. PT NOW CONVERTED TO SR/SB ON MONITOR. WILL CONTINUE TO MONIOR AND FOLLOW WITH POC
--- NOTE | 2018-07-17 08:46 | NUR ---
5n katharinaalejean patient wanting to return home. Discussed benefits of acute rehab. patient wants to discuss with his dtr. Casemgt following.
[2018-07-17] MEDS ORDERED: COZAAR 25 MG TA25 M1 PO ×2 (12:35→14:04)
[2018-07-17] MEDS ORDERED: DEMADEX20 MG PO ×2 (12:36→14:04)
[2018-07-17] MEDS ORDERED: PROTONIX40 M1 PO (13:00)
[2018-07-17] MEDS ORDERED: COLACE100 MG PO (13:00)
[2018-07-17] MEDS ORDERED: CEFUROXIME500 MG PO (13:21)
--- NOTE | 2018-07-17 13:22 | NUR ---
NOTIFIED [facility] OF REFERRAL SPOKE WITH ADELINA IN ADM SHE WILL REVIEW PT. TO DC TODAY. DCP TO FOLLOW.
[2018-07-17 13:34] LABS: DIRECT BILIRUBIN 1.2 mg/dL (<0.1-0.3); TOTAL BILIRUBIN 2.4 mg/dL (<0.1-1.0)
[2018-07-17] MEDS ORDERED: PACERONE 200 M200 M1 PO (14:04)
--- NOTE | 2018-07-17 14:14 | NUR ---
patient strongly wants to return home. Claire [employer] FIRM ACCOUNTS MANAGER with Dr Samuel discussed with patient and agreeable for home with HH. patient with no preference for home health agency and agreeable to [facility]. 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 [facility] agreeable for HH care. PCP is Dr Evelina Knowles.
--- NOTE | 2018-07-17 16:23 | NUR ---
ASSUMED CARE OF PT AT SHIFT BENAVIDEZ.E ASSESSMETNS CHARTED. MEDS MATEO PER MAY. PT ALERT AND ORIENTED, VSS, NO C/O PAIN. DENIES CHEST PAIN. O2 SATS WNL ON ROOM AIR. NO S/SX OF CARD OR RESP DISTRESS NOTED. PT UP X1 ASSIST WITH WALKER AND LEG BRACE. PT WORK WITH PHYSCIAL THERAPY TODAY, TOLERATED WELL. DC ORDERS ACKNOWLEDGED AND IMPLEMENTED. DC PAPERWORK DISCUSSED WITH PT, COMMUNICATES UNDERSTANDING. ORDER RECEIEVED FOR PICC LINE REMOVAL, ASSISTED BY CHARGE NURSE. PICC LINE REMOVED, TELE REMOVED. PT LEFT UNIT WITH ALL BELONGINGS AT APPROX 1615.
== END 2018-07-17 16:15 | disposition home health service (06) | DRG 280 ==
LOC: ER 03:19 → ICU 04:47 → EROBS 04:47 → ICU 05:40 → 2N 07-15 13:43
PROVIDERS: Emergency Medicine; Hospitalist; Internal Medicine Nephrology; Internal Medicine Pulmonary Disease; Nurse Practitioner Acute Care; ADMIT Internal Medicine
PROC: 5A1D70Z Performance of Urinary Filtration, Intermittent, Less than 6 Hours Per Day (ICD-10-PCS; principal; 2018-07-12)
PROC: 02HV33Z Insertion of Infusion Device into Superior Vena Cava, Percutaneous Approach (ICD-10-PCS; principal; 2018-07-12)
PROC: B548ZZA Ultrasonography of Superior Vena Cava, Guidance (ICD-10-PCS; principal; 2018-07-12)
PROC: B5181ZA Fluoroscopy of Superior Vena Cava using Low Osmolar Contrast, Guidance (ICD-10-PCS; principal; 2018-07-12)
PROC: B548ZZA Ultrasonography of Superior Vena Cava, Guidance (ICD-10-PCS; 2018-07-12)
PROC: B5181ZA Fluoroscopy of Superior Vena Cava using Low Osmolar Contrast, Guidance (ICD-10-PCS; 2018-07-12)
PROC: 02HV33Z Insertion of Infusion Device into Superior Vena Cava, Percutaneous Approach (ICD-10-PCS; 2018-07-12)
DX: I21.4 Non-ST elevation (NSTEMI) myocardial infarction (principal); I50.23 Acute on chronic systolic (congestive) heart failure; J96.01 Acute respiratory failure with hypoxia; K72.00 Acute and subacute hepatic failure without coma; R57.0 Cardiogenic shock; I13.0 Hypertensive heart and chronic kidney disease with heart failure and stage 1 through stage 4 chronic kidney disease, or unspecified chronic kidney disease; N17.9 Acute kidney failure, unspecified; I48.1 Persistent atrial fibrillation; I42.9 Cardiomyopathy, unspecified; E87.6 Hypokalemia; M19.90 Unspecified osteoarthritis, unspecified site; I25.10 Atherosclerotic heart disease of native coronary artery without angina pectoris; E78.2 Mixed hyperlipidemia; J45.909 Unspecified asthma, uncomplicated; I95.9 Hypotension, unspecified; I08.0 Rheumatic disorders of both mitral and aortic valves; D64.9 Anemia, unspecified; F17.210 Nicotine dependence, cigarettes, uncomplicated; M72.2 Plantar fascial fibromatosis; I44.0 Atrioventricular block, first degree; I48.2 Chronic atrial fibrillation; E87.5 Hyperkalemia; N18.9 Chronic kidney disease, unspecified; E78.5 Hyperlipidemia, unspecified; R26.9 Unspecified abnormalities of gait and mobility; E66.9 Obesity, unspecified; Z79.01 Long term (current) use of anticoagulants; Z79.899 Other long term (current) drug therapy; Z79.82 Long term (current) use of aspirin; Z82.49 Family history of ischemic heart disease and other diseases of the circulatory system; Z68.36 Body mass index [BMI] 36.0-36.9, adult
CPT/HCPCS: 10078; 10081; 32100